=== PATIENT | male | born 1990 | race African-American/Black ===

== ENCOUNTER 2023-07-24 07:39 | Emergency (ER) | payer MEDICAID ==
[~2023-07-24] VITALS: Ht 175.3 cm; Wt 65.9 kg
[2023-07-24 08:00] VITALS: BP 133/86; PULSE 101; RESP 18; TEMP 99
[2023-07-24] MEDS ORDERED: SODIUM CHLORIDE 0.9% 1,000 ML IV ONE (08:00)
[2023-07-24] MEDS ORDERED: FAMOTIDINE 20 MG/2 ML VIAL IVP ONE (08:00)
[2023-07-24] MEDS ORDERED: MAG HYDROX/ALUMINUM HYD/SIMETH 30 ML SUSPENSION UDCUP PO ONE (08:00)
[2023-07-24] MEDS ORDERED: ONDANSETRON HCL 4 MG/2 ML VIAL IVP ONE (08:00)
[2023-07-24] MEDS ORDERED: ACETAMINOPHEN 500 MG TABLET PO ONE (08:00)
[2023-07-24 08:42] LABS: ANION GAP 6 mmol/L (8-16); CALCIUM, TOTAL 8.9 mg/dL (8.8-10.5); CARBON DIOXIDE 25 mmol/L (22-29); CHLORIDE 99 mmol/L (98-107); CREATININE 1.03 mg/dL (0.60-1.30); GLOMERULAR FILTR. RATE CALC > 60 mL/min (>60); GLUCOSE,RANDOM 116 mg/dL (70-110); POTASSIUM 3.1 mmol/L (3.5-5.1); SODIUM SERUM 129 mmol/L (136-145); UREA NITROGEN, BLOOD 12 mg/dL (7-18)
[2023-07-24 08:47] LABS: ALANINE AMINOTRANSFERASE 14 U/L (12-78); ALBUMIN 3.4 g/dL (3.4-5.0); ALKALINE PHOSPHATASE 80 U/L (46-116); ASPARTATE AMINOTRANSFERASE 18 U/L (15-37); BILIRUBIN,TOTAL 0.7 mg/dL (0.1-1.0); LIPASE 15 U/L (16-77); TOTAL PROTEIN, SERUM 9.5 g/dL (6.4-8.2)
[2023-07-24 08:48] LABS: BASOPHILS % (AUTO) 0.4 % (0.0-2.0); EOSINOPHILS % (AUTO) 0 % (1.0-6.0); HEMATOCRIT 33.1 % (41-53); HEMOGLOBIN 10.8 g/dL (13.5-17.5); LYMPHOCYTES % (AUTO) 4.8 % (22.0-44.0); MEAN CORPUSCULAR HEMOGLOBIN 28.2 pg (26.0-34.0); MEAN CORPUSCULAR HGB CONC 32.6 G/dL (31.0-37.0); MEAN CORPUSCULAR VOLUME 87 fL (80-100); MONOCYTES # (AUTO) 0.5 K/uL (0.1-1.0); MONOCYTES % (AUTO) 2.6 % (2.0-9.0); NEUTROPHILS # (AUTO) 18.2 K/uL (1.8-7.7); PLATELET COUNT (AUTO) 165 K/uL (150-450); RED BLOOD CELL COUNT(AUTO) 3.83 MIL/uL (4.50-5.90); RED CELL DISTRIBUTION WIDTH 13.1 % (11.5-14.5); WHITE BLOOD COUNT (AUTO) 19.8 K/uL (4.5-11.0)
[2023-07-24 08:50] LABS: NEUTROPHILS % (AUTO) 92.2 % (40.0-70.0)
[2023-07-24] MEDS ORDERED: ONDA-104 PO (09:23)
== END 2023-07-24 11:07 | disposition home or self-care (01) ==
LOC: EMS 07:39
DX: R11.2 Nausea with vomiting, unspecified (principal)
CPT/HCPCS: 99284; 96374; 96361; 96375; 80053; 83690; 85025; 36415; J3490; J2405; J7030

== ENCOUNTER 2023-09-03 10:01 | Emergency (ER) | payer MEDICAID ==
[~2023-09-03] VITALS: Ht 175.3 cm; Wt 65.0 kg
[~2023-09-03 10:01] MED LIST: ONDA-104 PO
[2023-09-03 10:28] VITALS: BP 124/59; PULSE 73; RESP 16; TEMP 98.2
== END 2023-09-03 11:50 | disposition left against medical advice (07) ==
LOC: EMS 10:22
DX: M79.671 Pain in right foot (principal); Z53.21 Procedure and treatment not carried out due to patient leaving prior to being seen by health care provider
CPT/HCPCS: 99281; Z7502

== ENCOUNTER 2023-10-03 19:00 | Emergency (ER) | payer MEDICAID ==
[~2023-10-03] VITALS: Ht 175.3 cm; Wt 65.9 kg
[2023-10-03 19:25] VITALS: TEMP 98.9
[2023-10-03] MEDS: ACETAMINOPHEN 500 MG TABLET PO ONE (20:11)
[2023-10-03] MEDS: PERTUSS(ACELL),DIPH,TET VAC/PF 0.5 ML SYRINGE IM. ONE (20:13)
[2023-10-03 20:25] VITALS: BP 125/69; PULSE 98; RESP 18
[2023-10-03] MEDS ORDERED: IBUP-1492 PO (21:25)
[2023-10-03] MEDS ORDERED: ACET-3385 PO (21:26)
== END 2023-10-03 21:34 | disposition home or self-care (01) ==
LOC: EMS 19:03
DX: S50.02XA Contusion of left elbow, initial encounter (principal); F17.210 Nicotine dependence, cigarettes, uncomplicated; F12.90 Cannabis use, unspecified, uncomplicated; Z98.890 Other specified postprocedural states; V29.888A Rider (driver) (passenger) of other motorcycle injured in other specified transport accidents, initial encounter; Y93.89 Activity, other specified; Y92.89 Other specified places as the place of occurrence of the external cause; Y99.8 Other external cause status
CPT/HCPCS: 29105; 72100; 72170; 90471; 90715; 99284

== ENCOUNTER 2024-05-08 11:47 | Emergency (ER) | payer MEDICAID ==
[~2024-05-08] VITALS: Ht 175.3 cm; Wt 68.2 kg
[~2024-05-08 11:47] MED LIST changes: +CABO6SUS IM; +EMTR1TAB13 PO; +HYDR-4069 PO; +IBUP-1492 PO; -ONDA-104 PO; +SULF473O12 PO
[2024-05-08 12:24] VITALS: TEMP 100.3
[2024-05-08] MEDS: SODIUM CHLORIDE 0.9% 1,000 ML IV ONE ×2 (13:17→14:23)
[2024-05-08] MEDS: ONDANSETRON HCL 4 MG/2 ML VIAL IVP ONE (13:17)
[2024-05-08 13:19] LABS: BASOPHILS % (AUTO) 0.5 % (0.0-2.0); EOSINOPHILS % (AUTO) 0 % (1.0-6.0); HEMATOCRIT 31.1 % (41-53); HEMOGLOBIN 9.8 g/dL (13.5-17.5); LYMPHOCYTES # (AUTO) 1.6 K/uL (1.0-4.8); LYMPHOCYTES % (AUTO) 8.6 % (22.0-44.0); MEAN CORPUSCULAR HGB CONC 31.7 G/dL (31.0-37.0); MEAN CORPUSCULAR VOLUME 85 fL (80-100); MONOCYTES # (AUTO) 0.7 K/uL (0.1-1.0); MONOCYTES % (AUTO) 3.5 % (2.0-9.0); NEUTROPHILS # (AUTO) 16.5 K/uL (1.8-7.7); PLATELET COUNT (AUTO) 425 K/uL (150-450); RED BLOOD CELL COUNT(AUTO) 3.64 MIL/uL (4.50-5.90); RED CELL DISTRIBUTION WIDTH 13.5 % (11.5-14.5); WHITE BLOOD COUNT (AUTO) 18.9 K/uL (4.5-11.0)
[2024-05-08 13:27] LABS: NEUTROPHILS % (AUTO) 87.4 % (40.0-70.0)
[2024-05-08 13:52] LABS: ANION GAP 12 mmol/L (8-16); CARBON DIOXIDE 24 mmol/L (22-29); CHLORIDE 97 mmol/L (98-107); GLOMERULAR FILTR. RATE CALC > 60 mL/min (>60); GLUCOSE,RANDOM 105 mg/dL (70-110); POTASSIUM 3.6 mmol/L (3.5-5.1); SODIUM SERUM 133 mmol/L (136-145); UREA NITROGEN, BLOOD 12 mg/dL (7-18)
[2024-05-08 13:53] LABS: LIPASE 12 U/L (16-77)
[2024-05-08] MEDS ORDERED: 0.9% SODIUM CHLORIDE 10 ML SYRINGE IVP PRN (14:45)
[2024-05-08] MEDS ORDERED: IOHEXOL 350 MG/ML 100 ML VIAL ONE (14:52)
[2024-05-08] MEDS ORDERED: SODIUM CHLORIDE 0.9% 100 ML ONE (14:53)
[2024-05-08 15:25] LABS: APPEARANCE,URINE CLEAR (CLEAR); BILIRUBIN,URINE NEGATIVE (NEGATIVE); COLOR,URINE YELLOW (YELLOW); GLUCOSE, URINE (UA) NEGATIVE (NEGATIVE); KETONES,URINE NEGATIVE (NEGATIVE); LEUKOCYTE ESTERASE ,URINE MODERATE (NEGATIVE); NITRATE,URINE NEGATIVE (NEGATIVE); OCCULT BLOOD,URINE SMALL (NEGATIVE); PH,URINE 5.5 (5.0-8.0); PROTEIN,URINE TRACE mg/dL (NEGATIVE); SPECIFIC GRAVITIY, URINE 1.015 (1.003-1.030)
[2024-05-08] MEDS: SODIUM CHLORIDE 0.9% 2,050 ML IV ONE (15:27)
[2024-05-08] MEDS: CefTRIAXone 1 GM/DEXTROSE 50 ML IV ONE (15:27)
[2024-05-08 15:30] LABS: ALBUMIN 2.6 g/dL (3.4-5.0); BILIRUBIN,DIRECT 0.1 mg/dL (0.00-0.20); BILIRUBIN,TOTAL 0.5 mg/dL (0.1-1.0); TOTAL PROTEIN, SERUM 8.1 g/dL (6.4-8.2)
[2024-05-08 15:33] LABS: BACTERIA,URINE Rare /HPF (None Seen); RBC,URINE 0-2 /HPF (0-2); SQUAMOUS EPITHELIAL CELL,UR Rare /LPF (None Seen)
[2024-05-08] MEDS ORDERED: LEVO-72 PO (17:15)
[2024-05-08] MEDS ORDERED: METR500 PO (17:15)
[2024-05-08 17:37] VITALS: BP 140/65; PULSE 86; RESP 16; O2SAT 96
== END 2024-05-08 17:58 | disposition home or self-care (01) ==
LOC: EMS 11:55
DX: K62.89 Other specified diseases of anus and rectum (principal); N39.0 Urinary tract infection, site not specified; R65.10 Systemic inflammatory response syndrome (SIRS) of non-infectious origin without acute organ dysfunction; F17.210 Nicotine dependence, cigarettes, uncomplicated; F12.90 Cannabis use, unspecified, uncomplicated; Z88.8 Allergy status to other drugs, medicaments and biological substances
CPT/HCPCS: 99291; 71260; 96365; 96361; 96375; 80048; 80076; 81001; 83605; 83690; 85025; 87040; 36415; 87086; 87186; 72193; 74160; 93005; Q9967; J0696; J2405; J7030; J7050

== ENCOUNTER 2024-06-04 13:25 | Emergency (ER) | payer MEDICAID ==
[~2024-06-04] VITALS: Ht 175.3 cm; Wt 65.9 kg
[~2024-06-04 13:25] MED LIST changes: +LEVO-72 PO; +METR500 PO
[2024-06-04 13:54] VITALS: BP 132/87; PULSE 60; RESP 20; TEMP 98.7; O2SAT 100
[2024-06-04] MEDS ORDERED: OXYC-38 PO (15:07)
[2024-06-04] MEDS: SILVER SULFADIAZINE 1% 25 GM CREAM TP ONE (15:10)
== END 2024-06-04 15:39 | disposition home or self-care (01) ==
LOC: EMS 13:25
DX: T21.22XA Burn of second degree of abdominal wall, initial encounter (principal); F17.210 Nicotine dependence, cigarettes, uncomplicated; F12.90 Cannabis use, unspecified, uncomplicated; T31.0 Burns involving less than 10% of body surface; Z88.8 Allergy status to other drugs, medicaments and biological substances; Z98.890 Other specified postprocedural states
CPT/HCPCS: 16000; 99283

== ENCOUNTER 2024-07-08 05:50 | Emergency (ER) | payer MEDICAID ==
[~2024-07-08] VITALS: Ht 175.3 cm; Wt 65.9 kg
[~2024-07-08 05:50] MED LIST changes: -HYDR-4069 PO; -IBUP-1492 PO; -LEVO-72 PO; -METR500 PO; +OXYC-38 PO; -SULF473O12 PO
[2024-07-08 05:51] VITALS: TEMP 99.4
[2024-07-08] MEDS: FAMOTIDINE 20 MG TABLET PO ONE (06:23)
[2024-07-08] MEDS: MAG HYDROX/ALUMINUM HYD/SIMETH 30 ML SUSPENSION UDCUP PO ONE (06:23)
[2024-07-08] MEDS: ACETAMINOPHEN 500 MG TABLET PO ONE (06:23)
[2024-07-08] MEDS: ONDANSETRON 4 MG TABLET PO ONE (06:24)
[2024-07-08 06:30] VITALS: BP 119/73; PULSE 89; RESP 16; O2SAT 96
[2024-07-08 06:32] LABS: COVID AG,FIA SOURCE NASAL SWAB
[2024-07-08 06:41] LABS: BASOPHILS % (AUTO) 0.2 % (0.0-2.0); EOSINOPHILS % (AUTO) 0.1 % (1.0-6.0); HEMATOCRIT 32.9 % (41-53); HEMOGLOBIN 10.7 g/dL (13.5-17.5); LYMPHOCYTES # (AUTO) 2.3 K/uL (1.0-4.8); LYMPHOCYTES % (AUTO) 23.9 % (22.0-44.0); MEAN CORPUSCULAR HEMOGLOBIN 27.3 pg (26.0-34.0); MEAN CORPUSCULAR HGB CONC 32.5 G/dL (31.0-37.0); MEAN CORPUSCULAR VOLUME 84 fL (80-100); MONOCYTES # (AUTO) 0.8 K/uL (0.1-1.0); MONOCYTES % (AUTO) 8.7 % (2.0-9.0); NEUTROPHILS # (AUTO) 6.4 K/uL (1.8-7.7); NEUTROPHILS % (AUTO) 67.1 % (40.0-70.0); PLATELET COUNT (AUTO) 417 K/uL (150-450); RED BLOOD CELL COUNT(AUTO) 3.91 MIL/uL (4.50-5.90); RED CELL DISTRIBUTION WIDTH 15.2 % (11.5-14.5); WHITE BLOOD COUNT (AUTO) 9.5 K/uL (4.5-11.0)
[2024-07-08 06:50] LABS: ALANINE AMINOTRANSFERASE 10 U/L (12-78); ALBUMIN 3.2 g/dL (3.4-5.0); ALKALINE PHOSPHATASE 75 U/L (46-116); ANION GAP 7 mmol/L (8-16); ASPARTATE AMINOTRANSFERASE 21 U/L (15-37); BILIRUBIN,TOTAL 0.5 mg/dL (0.1-1.0); CALCIUM, TOTAL 9.1 mg/dL (8.8-10.5); CARBON DIOXIDE 28 mmol/L (22-29); CHLORIDE 96 mmol/L (98-107); CREATININE 1.32 mg/dL (0.60-1.30); GLOMERULAR FILTR. RATE CALC > 60 mL/min (>60); GLUCOSE,RANDOM 90 mg/dL (70-110); LIPASE 30 U/L (16-77); SODIUM SERUM 131 mmol/L (136-145); UREA NITROGEN, BLOOD 14 mg/dL (7-18)
[2024-07-08 06:52] LABS: POTASSIUM 2.9 mmol/L (3.5-5.1)
[2024-07-08] MEDS ORDERED: ONDA-104 PO (06:57)
[2024-07-08] MEDS: POTASSIUM CHLORIDE 20 MEQ ER TABLET PO ONE (07:05)
[2024-07-08 07:31] LABS: SARS-COV2 (COVID) ANTIGEN,FIA Negative (Negative)
[2024-07-08 07:32] LABS: INFLUENZA TYPE B NEGATIVE FOR TYPE B (NEGATIVE)
[2024-07-08 07:37] LABS: INFLUENZA TYPE A POSITIVE FOR TYPE A (NEGATIVE)
== END 2024-07-08 07:36 | disposition home or self-care (01) ==
LOC: EMS 05:50
DX: E87.6 Hypokalemia (principal); R19.7 Diarrhea, unspecified; R11.2 Nausea with vomiting, unspecified; F17.210 Nicotine dependence, cigarettes, uncomplicated; F12.90 Cannabis use, unspecified, uncomplicated; Z98.890 Other specified postprocedural states; Z79.624 Long term (current) use of inhibitors of nucleotide synthesis; Z20.822 Contact with and (suspected) exposure to COVID-19
CPT/HCPCS: 99284; 87426; 80048; 80076; 83690; 85025; 87804; 36415; Q0162